=== PATIENT | female | born 1985 | race Caucasian/White ===

== ENCOUNTER → 2022-12-16 13:22 | Outpatient (BNVA) | payer BC, MEDICAID, SELFPAY | PROVIDERS: PCP Nurse Practitioner; Visit Provider Nurse Practitioner Family | DX: R30.0 Dysuria (principal); C16.9 Malignant neoplasm of stomach, unspecified; K44.9 Diaphragmatic hernia without obstruction or gangrene; Z76.89 Persons encountering health services in other specified circumstances | CPT/HCPCS: 81000 ==

== ENCOUNTER 2024-06-23 08:40 | Outpatient (CLI) | payer BC, MEDICAID, SELFPAY | END 2024-06-23 08:41 | disposition home or self-care (01) | LOC: SLEEP 08:43 | PROVIDERS: PCP Nurse Practitioner Family; Visit Provider Nurse Practitioner | DX: R06.83 Snoring (principal); R53.83 Other fatigue; G47.00 Insomnia, unspecified | CPT/HCPCS: G0399 ==

== ENCOUNTER → 2025-01-11 09:30 | Outpatient (BNVA) | payer BC, MEDICAID, SELFPAY | PROVIDERS: Visit Provider Nurse Practitioner Family | DX: Z98.84 Bariatric surgery status (principal); R11.2 Nausea with vomiting, unspecified; R10.9 Unspecified abdominal pain | CPT/HCPCS: 80053; 82306; 82607; 84443; 85025; 86003; 86008 ==

== ENCOUNTER → 2025-01-20 12:19 | Outpatient (BNVA) | payer BC, MEDICAID, SELFPAY | PROVIDERS: Visit Provider Nurse Practitioner Family | DX: K52.29 Other allergic and dietetic gastroenteritis and colitis (principal) | CPT/HCPCS: 86008 ==